=== PATIENT | male | born 1960 | race Caucasian/White ===

== ENCOUNTER 2024-05-20 04:16 | Emergency (ER) | payer OTHER, SELFPAY ==
[2024-05-20 04:18] VITALS: BP 142/88
[2024-05-20 04:25] VITALS: BP 142/88
[2024-05-20 04:31] VITALS: BP 142/78
[2024-05-20 04:35] VITALS: BMI 25.8
--- NOTE | 2024-05-20 04:44 | ED.GENMED ---
History of Present Illness
<YAMILET Higgins - Last Filed: 05/20/24 05:03>
General
Chief Complaint: Abdominal Pain
Source: patient and spouse
Exam Limitations: none
Time Seen by Provider: 05/20/24 04:27
Nursing documentation reviewed up to this point in time: agreed with
History of Present Illness
History of Present Illness:
Pt is a 64 y/o M with pmhx of delano's esophagus, BPH, and MVP who presents with complaints of diffuse upper abdominal pain since 2 AM. The pain is described as a diffuse tightness rated 7/10 in severity. There is associated nausea and 1 episode of
vomit with food. His last meal was at 6pm and he took tums without any relief. The patient was colicky during interview. Denies diarrhea, chest pain, SOB.
The pt is scheduled for surgery for his MVP on 06/01/24. He had a similar issue to this over 10 years ago but not as severe.
Past History
<YAMILET Higgins - Last Filed: 05/20/24 05:03>
Past History
ED Past Medical History: GERD (Delano's esophagus), Valvular disease (MVP) and Other (BPH)
Social History
Tobacco: Non-smoker
Alcohol: Occasional
Drug: None
Personal:
Living: with family
Review of Systems
<YAMILET Higgins - Last Filed: 05/20/24 05:03>
Review of Systems
Allergies reviewed?: Yes
Constitutional: Reports no symptoms
EENT: Reports no symptoms
Respiratory: Reports no symptoms
Cardiac: Reports no symptoms
ABD/GI: Reports abdominal pain, nausea and vomiting
: Reports no symptoms
Musculoskeletal: Reports no symptoms
Skin: Reports no symptoms
Neurological: Reports no symptoms
Endocrine: Reports no symptoms
Hematologic/Lymphatic: Reports no symptoms
Psychiatric: Reports no symptoms
Phy Exam
<YAMILET Higgins - Last Filed: 05/20/24 05:03>
General Physical Exam
General Presentation: well appearing and moderate distress
General age: appears stated age
General Skin: warm and dry
General Habitus: normal
General Mental: alert
General Hydration: appears well hydrated
ENT Exam
ENT Exam: neck supple
Eye Exam
Eye Exam: cornea clear and conjunctiva normal
Cardiovascular Exam
Cardiovascular Exam: regular rate/rhythm and normal peripheral pulses
Pulmonary Exam
Pulmonary Exam: lungs clear, no respiratory distress and chest non tender
Gastrointestinal Exam
Gastrointestinal Exam: normal bowel sounds and soft
Palpation: left upper quadrant: Mild tenderness and right upper quadrant: Moderate tenderness
Neurological Exam
Neurological Exam: alert and oriented x3
Musculoskeletal Exam
Musculoskeletal Exam: full ROM
Skin Exam
Skin Exam: normal color and warm/dry
Psychiatric Exam
Psychiatric Exam: normal mood/affect
Course
<YAMILET Higgins - Last Filed: 05/20/24 05:03>
Orders/Labs/Results
Orders:
Orders
05/20/24 04:28
EKG [Electrocardiogram (*1)] Urgent
Reason for Study: Abdominal Pain
EKG- Treatment ONCE
05/20/24 04:56
Complete Blood Count/With Diff Urgent
Comprehensive Metabolic Panel Urgent
Lipase Urgent
Troponin I Urgent
05/20/24 05:03
0.9% Sodium Chloride 1000 ml [Nss] 1,000 ml IV BOLUS
HYDROmorphone [Dilaudid] 1 mg IV NOW STA
Ondansetron Injectable [Zofran] 4 mg IV NOW STA
US Abdomen Complete/Upper Urgent
Comment:
Reason For Exam: acute severe RUQ, upper abd pain w N
05/20/24 05:10
Ketorolac [Toradol] 30 mg IV NOW STA
Abnormal Lab Results
05/20/24
04:56
WBC 12.5 H 10^3/uL
(4.8-10.8)
MCV 94.1 H fL
(80.0-94.0)
MCH 33.7 H pg
(27.0-31.0)
Absolute Neuts (auto) 9.2 H 10^3/uL
(1.4-6.5)
Absolute Monos (auto) 1.2 H 10^3/uL
(0.1-0.6)
Lymphocytes % 15.3 L %
(20.5-51.1)
BUN 25 H mg/dl
(9-20)
Glucose 112 H mg/dl
(70-99)
05/20/24 04:56
05/20/24 04:56
Vital Signs
Initial and Last Documented VS:
Initial Vital Signs
Temp Pulse Resp BP Pulse Ox
97.7 F 55 18 142/88 96
05/20/24 04:18 05/20/24 04:18 05/20/24 04:18 05/20/24 04:18 05/20/24 04:18
Last Documented Vital Signs
Temp Pulse Resp BP Pulse Ox
97.6 F 73 20 113/57 97
05/20/24 04:25 05/20/24 06:07 05/20/24 06:05 05/20/24 06:05 05/20/24 04:45
<Irma Lind DO - Last Filed: 05/20/24 07:03>
Orders/Labs/Results
Orders:
Orders
05/20/24 04:28
EKG [Electrocardiogram (*1)] Urgent
Reason for Study: Abdominal Pain
EKG- Treatment ONCE
05/20/24 04:56
Complete Blood Count/With Diff Urgent
Comprehensive Metabolic Panel Urgent
Lipase Urgent
Troponin I Urgent
05/20/24 05:03
0.9% Sodium Chloride 1000 ml [Nss] 1,000 ml IV BOLUS
HYDROmorphone [Dilaudid] 1 mg IV NOW STA
Ondansetron Injectable [Zofran] 4 mg IV NOW STA
US Abdomen Complete/Upper Urgent
Comment:
Reason For Exam: acute severe RUQ, upper abd pain w N
05/20/24 05:10
Ketorolac [Toradol] 30 mg IV NOW STA
Abnormal Lab Results
05/20/24
04:56
WBC 12.5 H 10^3/uL
(4.8-10.8)
MCV 94.1 H fL
(80.0-94.0)
MCH 33.7 H pg
(27.0-31.0)
Absolute Neuts (auto) 9.2 H 10^3/uL
(1.4-6.5)
Absolute Monos (auto) 1.2 H 10^3/uL
(0.1-0.6)
Lymphocytes % 15.3 L %
(20.5-51.1)
BUN 25 H mg/dl
(9-20)
Glucose 112 H mg/dl
(70-99)
05/20/24 04:56
05/20/24 04:56
Vital Signs
Initial and Last Documented VS:
Initial Vital Signs
Temp Pulse Resp BP Pulse Ox
97.7 F 55 18 142/88 96
05/20/24 04:18 05/20/24 04:18 05/20/24 04:18 05/20/24 04:18 05/20/24 04:18
Last Documented Vital Signs
Temp Pulse Resp BP Pulse Ox
97.6 F 73 20 113/57 97
05/20/24 04:25 05/20/24 06:07 05/20/24 06:05 05/20/24 06:05 05/20/24 04:45
<YAMILET Higgins - Last Filed: 05/20/24 05:03>
*Critical Care Note
Total Time (30-74mins, 75-104mins- exclusive of procedures): Not Applicable
<Irma Lind DO - Last Filed: 05/20/24 07:03>
*Radiology
Radiology exam reviewed: radiology read reviewed
*Pulse Oximetry
Patient hypoxic: no
*EKG
Interpreted by ED Provider?: Yes
Comparison EKG: no changes (Unchanged from previous EKG December 2023-records brought by patient and .)
Rate: bradycardiac
Rhythm: sinus
[place]: normal axis
Interval: first degree heart block
QRS Pattern: normal QRS
Ischemia: no ischemia
*Fire Extinguisher Technician Interpretation
Rate: bradycardiac
Interpretation: normal
Rhythm: sinus
ED Attending Note
<YAMILET Higgins - Last Filed: 05/20/24 05:03>
-
Portions of this chart may have been created with voice recognition software.� Occasional wrong word or��sound alike� substitutions may have occurred due to the inherent limitations of voice recognition software.
<Irma Lind DO - Last Filed: 05/20/24 07:03>
ED Attending Note
Patient seen and examined by attending physician: Yes
I performed the substantive portion of visit, reviewed & personally made and approve the management plan that is documented in note by myself or AKANKSHA.: Yes
ED Attending Note:
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
[place] and he is scheduled for mitral valve repair procedure June 01 of this year. He has history of TIA 2016 and during workup for TIA was found to have a small PFO that has not required repair. Since that TIA he has been maintained on
atorvastatin as well as low-dose aspirin. He also has history of BPH.
During workup for mitral regurgitation he underwent cardiac catheterization earlier this month which showed minimal CAD.
He has been feeling well but woke up abruptly at 2 AM with severe epigastric abdominal discomfort which he describes as a sense of tightness, discomfort accompanied with nausea and 1 episode of vomiting. Thus far no relief with an additional dose
of Protonix nor relief with antiacid. He admits to 1 similar episode of upper abdominal pain perhaps 10 years ago which he believes resolved after picking up a prescription for GI cocktail. After that episode he has had no further episodes until
tonight.
He denies chest pain nor back pain, no shortness of breath nor cough, no fever no chills, no diarrhea or constipation.
GENERAL: 64-year-old quite tall gentleman appears his stated age, awake and alert, appears in moderate distress, restless, intermittently wincing in pain. is accompanying.
EYE: pupils equal and reactive. anicteric
NECK: Supple, nontender, no meningismus, no significant adenopathy.
ENT: oral mucosa is moist. No rhinorrhea.
CARDIAC: Regular rate and rhythm. no murmur.
LUNGS: Clear breath sounds bilaterally, no acute respiratory distress, no wheezes/rales/rhonchi
ABDOMEN: Soft, nondistended, mild tenderness with deep palpation only epigastric region as well as minimal tenderness right upper quadrant, no r/g, no cvat. normoactive BS.
NEUROLOGICAL: Alert and oriented x3, no focal neuro deficits. Gait is steady.
SKIN: Warm and dry, normal color, skin intact. No rash.
MUSCULOSKELETAL: No C/C/E. peripheral pulses are full and equal b/l. No palpable tenderness.
PSYCH: Mildly anxious related to pain. Cooperative.
Concern for acute biliary colic, acute cholecystitis, acute pancreatitis, gastritis, ACS, small bowel obstruction. Ischemic bowel is less likely.
Will medicate for pain and nausea, check EKG, labs and plan for abdominal ultrasound.
05/20/2024 0657 AM
Patient is comfortable and pain-free after IV pain medication.
Abdomen is soft, nontender.
Labs show mildly elevated white blood cell count otherwise chemistries within normal limits. Troponin is negative.
Ultrasound shows distended gallbladder with thickened gallbladder wall. No pericholecystic fluid. Rodriguez sign was negative.
As patient is currently pain-free and comfortable I suspect acute biliary colic.
Will attempt oral fluids and if no return of pain, remains comfortable will plan for discharge to home with recommendations to initiate strict low-fat diet and will refer to general surgery for follow-up.
A prescription for a few Percocet as well as Zofran for as needed return of pain and if this is ineffective or if recurrent pain associated with fever, intractable vomiting, recommend prompt return to the ED for further evaluation.
Discharge Plan
Departure
Patient Disposition: Home (Routine Discharge)
Date of Disposition: 05/20/24
Time of Disposition: 06:59
Patient with high blood pressure during this ER visit?: No
Discharge Problem:
acute biliary colic
Instructions: Clear Liquid Diet, Gallstones ED
Prescriptions:
New
oxycodone-acetaminophen [Percocet] 5-325 mg Tablet
1 tab PO Q4HPRN PRN (Reason: pain) Qty: 6 0RF
ondansetron 4 mg tablet,disintegrating
4 mg PO QID PRN (Reason: nausea and vomiting) Qty: 20 0RF
Referrals:
Pankaj Wells MD [Family Provider] -
Jeffrey Godoy MD [Active] - Call in 1-3 days for appt
Interventions
Interventions:
*Risk Screen - Suicide Last Done: 05/20/24 04:18
*General Assessment Last Done: 05/20/24 04:35
*Neglect/Abuse Screening Last Done: 05/20/24 04:35
*ED COVID-19 Vaccine History Last Done: 05/20/24 04:35
EF-Mvddcv-Ddiigrmrcs Assessment Last Done: 05/20/24 04:34
Discharge Date and Time
Print Language: KOSOVAN
[2024-05-20 05:00] VITALS: BP 143/88
[2024-05-20] MEDS: NSS 1000 IV (05:07)
[2024-05-20] MEDS: ZOFRAN 4 MG IV (05:07)
[2024-05-20 05:13] LABS: % Basophils 0.3 % (0-2); % Eosinophils 1.7 % (0-6); % Immature Granulocytes 0.3 % (0-0.5); % Lymphocytes 15.3 % (20.5-51.1); % Monocytes 9.3 % (1.7-9.3); % Neutrophils 73.1 % (42.2-75.2); Absolute Eosinophils 0.2 10^3/uL (0-0.7); Absolute Lymphocytes 1.9 10^3/uL (1.2-3.4); Absolute Monocytes 1.2 10^3/uL (0.1-0.6); Absolute Neutrophils 9.2 10^3/uL (1.4-6.5); Hematocrit 47.5 % (39.0-52.0); Mean Corp Hgb Conc. 35.8 g/dL (33.0-37.0); Mean Corpuscular Hgb 33.7 pg (27.0-31.0); Mean Corpuscular Volume 94.1 fL (80.0-94.0); Mean Platelet Volume 9.7 fL (7.4-10.4); Nucleated Red Blood Cells % 0 % (-); Platelet Count 175 10^3/uL (130-400); Red Blood Cell Count 5.05 10^6/uL (4.70-6.10); Red Cell Dist. Width 11.9 % (11.5-14.5); White Blood Cell Count 12.5 10^3/uL (4.8-10.8)
[2024-05-20] MEDS: TORADOL 30 MG IV (05:14)
[2024-05-20] MEDS: DILAUDID 1 MG IV (05:29)
[2024-05-20 05:36] LABS: Troponin I < 0.012 ng/ml
[2024-05-20 05:44] LABS: ALT (SGPT) 29 U/L (0-50); AST (SGOT) 35 U/L (17-59); Albumin 4.3 g/dl (3.5-5.0); Alkaline Phosphatase 64 U/L (38-126); Blood Urea Nitrogen 25 mg/dl (9-20); Calcium 9.3 mg/dl (8.4-10.2); Carbon Dioxide 24 mmol/L (22-30); Chloride 105 mmol/L (98-107); Estimated Creatinine Clearance 99 ml/min; Glucose 112 mg/dl (70-99); Lipase 85 U/L (23-300); Potassium 4.3 mmol/L (3.5-5.1); Sodium 143 mmol/L (135-145); Total Bilirubin 0.9 mg/dl (0.2-1.3); Total Protein 6.3 g/dl (6.3-8.2); eGFR > 60.00
[2024-05-20 06:05] VITALS: BP 113/57
[2024-05-20 07:00] VITALS: BP 131/70
== END 2024-05-20 07:29 | disposition home or self-care (01) ==
LOC: EMR 04:16
PROVIDERS: EMERGENCY PHYSICIAN Emergency Medicine; FAMILY PHYSICIAN Family Medicine
DX: K80.50 Calculus of bile duct without cholangitis or cholecystitis without obstruction (principal); K21.9 Gastro-esophageal reflux disease without esophagitis; I34.1 Nonrheumatic mitral (valve) prolapse; Z86.73 Personal history of transient ischemic attack (TIA), and cerebral infarction without residual deficits
CPT/HCPCS: 96374; 96375; 96361; 99284; 76700; 80053; 83690; 84484; 85025; 93005